=== PATIENT | male | born 1955 | race Caucasian/White ===

== ENCOUNTER → 2017-12-12 | Outpatient (CLI) | payer OTHER | LOC: M RAD 06:19 | DX: R93.5 Abnormal findings on diagnostic imaging of other abdominal regions, including retroperitoneum (principal); D69.6 Thrombocytopenia, unspecified | CPT/HCPCS: 76700 ==

== ENCOUNTER → 2018-03-27 | Outpatient (REF) | payer OTHER ==
[~2018-03-27] MED LIST: ASPI1TAB PO; GLIP10TA6 PO; JANU100T PO; LOSA50TA88 PO; METF10004 PO; PRAV10TA4 PO
== END ==
LOC: M LAB REF 10:13
PROVIDERS: ATTEND Physician Assistant
DX: N39.0 Urinary tract infection, site not specified (principal)

== ENCOUNTER 2023-02-28 03:16 | Inpatient (IN) | payer MEDICARE, OTHER ==
[~2023-02-28] VITALS: Ht 180.3 cm; Wt 140.4 kg
[~2023-02-28 03:16] MED LIST changes: -ASPI1TAB PO; +ASPI81TA26 PO; +LOSA50TA28 PO; -LOSA50TA88 PO
[2023-02-28 04:39] VITALS: BP 165/86; TEMP 98.4; O2SAT 98
[2023-02-28] MEDS ORDERED: ONDANSETRON 4MG 2ML VIAL IV PRN (04:40)
[2023-02-28] MEDS ORDERED: GLUCAGON INJ 1MG VIAL SC PRN (04:40)
[2023-02-28] MEDS ORDERED: GLUCOSE 4GM CHEW TABLET PO PRN (04:40)
[2023-02-28] MEDS ORDERED: DEXTROSE 50% 50ML SYRINGE IV PRN (04:40)
[2023-02-28 05:48] LABS: BASO # 0.1 10^3/uL (0.0-0.2); BASO % 1.1 % (0.0-1.0); EOS # 0.3 10^3/uL (0.0-0.5); EOS % 4.8 % (0.0-3.0); HEMATOCRIT 38.1 % (42.0-52.0); HEMOGLOBIN 12.9 g/dl (13.5-17.5); LYMPH # 1.4 10^3/uL (1.5-5.0); MEAN CORPUSCULAR HEMOGLOBIN 33.7 pg (27.0-33.0); MEAN CORPUSCULAR HGB CONC 33.9 g/dl (32.0-36.5); MEAN CORPUSCULAR VOLUME 99.5 fl (80.0-96.0); MONO # 0.8 10^3/uL (0.0-0.8); MONO % 14.6 % (2.0-8.0); NEUTROPHILS # 2.8 10^3/uL (1.5-8.5); NEUTROPHILS % 52.3 % (36.0-66.0); RED BLOOD COUNT 3.83 10^6/uL (4.30-6.10); WHITE BLOOD COUNT 5.3 10^3/uL (4.0-10.0)
[2023-02-28 05:57] LABS: INR 1.41; PROTHROMBIN TIME 16.8 SECONDS (12.5-14.5)
[2023-02-28 05:58] LABS: PARTIAL THROMBOPLASTIN TIME 32.1 SECONDS (24.8-34.2)
[2023-02-28 06:04] LABS: PLATELET COUNT, AUTOMATED 86 10^3/uL (150-450)
[2023-02-28 06:07] LABS: ALBUMIN 2.9 G/DL (3.2-5.2); ALKALINE PHOSPHATASE 113 U/L (46-116); ALT/SGPT 42 U/L (7.0-40); AST/SGOT 58 U/L (<34); BILIRUBIN,TOTAL 1.7 MG/DL (0.3-1.2); BLOOD UREA NITROGEN 22 MG/DL (9-23); CALCIUM LEVEL 8.7 MG/DL (8.3-10.6); CARBON DIOXIDE LEVEL 23 MMOL/L (20-31); CHLORIDE LEVEL 111 MMOL/L (98-107); CREATININE FOR GFR 0.55 MG/DL (0.70-1.30); GLOMERULAR FILTRATION RATE > 60.0 (>49); GLUCOSE, FASTING 95 MG/DL (74-106); POTASSIUM SERUM 3.5 MMOL/L (3.5-5.1); SODIUM LEVEL 144 MMOL/L (136-145); TOTAL PROTEIN 6.6 G/DL (5.7-8.2)
[2023-02-28] MEDS ORDERED: TIRZ7.5P SQ (06:22)
[2023-02-28] MEDS ORDERED: AMLO1TAB24 PO (06:22)
[2023-02-28] MEDS ORDERED: ASPI-161 PO (06:22)
[2023-02-28] MEDS ORDERED: TUMS500C PO (06:22)
[2023-02-28] MEDS ORDERED: HOME MED LIST COMPLETE! XX SCH (06:25)
[2023-02-28] MEDS: traMADol 50 MG TAB PO PRN ×2 (06:38→20:52)
[2023-02-28] MEDS: INSULIN LISPRO (NovoLOG) PER UNIT SC SCH ×4 (07:30→20:47)
[2023-02-28] MEDS ORDERED: SPIRONOLACTONE 25 MG TAB PO SCH (09:00)
[2023-02-28] MEDS ORDERED: FUROSEMIDE 20MG/2ML VIAL IV SCH (09:00)
[2023-02-28] MEDS: PANTOPRAZOLE 40MG VIAL IV SCH (09:23)
[2023-02-28] MEDS: SPIRONOLACTONE 50 MG TAB PO SCH (09:23)
[2023-02-28] MEDS: FUROSEMIDE 20MG/2ML VIAL IV SCH (09:24)
[2023-02-28] MEDS: LACTULOSE 20GM/30ML SYRUP UDC PO SCH ×2 (09:24→20:51)
[2023-02-28 12:05] LABS: HEPATITIS B SURFACE ANTIBODY POSITIVE (POSITIVE)
[2023-02-28 12:08] LABS: APPEARANCE, BODY FLUID HAZY (CLEAR); ASCITES FL COLOR YELLOW (COLORLESS); SOURCE, BODY FLUID ASCITES
[2023-02-28 12:22] LABS: SOURCE, BODY FLUID ALBUMIN ASCITES
[2023-02-28 12:27] LABS: SOURCE, BODY FLUID GLUCOSE ASCITES
[2023-02-28 12:29] LABS: SOURCE, BODY FLUID TOT PROTEIN ASCITES; TOTAL PROTEIN, BODY FLUID < 2.0 G/DL (NOT ESTABLISHED)
[2023-02-28 12:39] LABS: HEPATITIS C VIRUS ABY INDEX 0.04 INDEX (<0.8)
[2023-02-28 14:00] VITALS: TEMP 98.1; O2SAT 98
[2023-02-28 14:14] VITALS: BP 165/85
[2023-02-28 22:00] VITALS: BP 165/86; TEMP 98.1; O2SAT 94
[2023-02-28] MEDS: HEPARIN SOD (PORCINE) 5000UNITS/ML 1ML VIAL/SYRINGE SC SCH (22:38)
[2023-02-28] MEDS ORDERED: hydrALAZINE 20MG/ML 1ML VIAL IV ONE (22:50)
[2023-02-28] MEDS ORDERED: **hydrALAZINE HCL** 25 MG TAB PO ONE (23:00)
[2023-03-01] MEDS ORDERED: UNRESOLVED CLARIFICATION ENTRY XX SCH (00:01)
[2023-03-01] MEDS: HEPARIN SOD (PORCINE) 5000UNITS/ML 1ML VIAL/SYRINGE SC SCH ×3 (05:17→22:04)
[2023-03-01 06:06] LABS: HEMATOCRIT 34.9 % (42.0-52.0); HEMOGLOBIN 11.9 g/dl (13.5-17.5); MEAN CORPUSCULAR HEMOGLOBIN 33.6 pg (27.0-33.0); MEAN CORPUSCULAR HGB CONC 34.1 g/dl (32.0-36.5); MEAN CORPUSCULAR VOLUME 98.6 fl (80.0-96.0); RED BLOOD COUNT 3.54 10^6/uL (4.30-6.10); WHITE BLOOD COUNT 4.2 10^3/uL (4.0-10.0)
[2023-03-01 06:23] LABS: PLATELET COUNT, AUTOMATED 79 10^3/uL (150-450)
[2023-03-01 06:30] VITALS: BP 128/76; TEMP 97.1; O2SAT 94
[2023-03-01 06:32] LABS: ALBUMIN 2.5 G/DL (3.2-5.2); ALKALINE PHOSPHATASE 99 U/L (46-116); ALT/SGPT 37 U/L (7.0-40); AST/SGOT 51 U/L (<34); BILIRUBIN,DIRECT 0.6 MG/DL (<0.4); BILIRUBIN,TOTAL 1.4 MG/DL (0.3-1.2); BLOOD UREA NITROGEN 16 MG/DL (9-23); CALCIUM LEVEL 7.9 MG/DL (8.3-10.6); CARBON DIOXIDE LEVEL 28 MMOL/L (20-31); CHLORIDE LEVEL 111 MMOL/L (98-107); CREATININE FOR GFR 0.51 MG/DL (0.70-1.30); GLOMERULAR FILTRATION RATE > 60.0 (>49); GLUCOSE, FASTING 99 MG/DL (74-106); POTASSIUM SERUM 3.4 MMOL/L (3.5-5.1); SODIUM LEVEL 145 MMOL/L (136-145); TOTAL PROTEIN 5.8 G/DL (5.7-8.2)
[2023-03-01] MEDS: INSULIN LISPRO (NovoLOG) PER UNIT SC SCH ×4 (07:19→21:00)
[2023-03-01] MEDS: LACTULOSE 20GM/30ML SYRUP UDC PO SCH ×2 (08:13→22:04)
[2023-03-01] MEDS: PANTOPRAZOLE 40MG VIAL IV SCH (08:13)
[2023-03-01] MEDS: FUROSEMIDE 20MG/2ML VIAL IV SCH (08:14)
[2023-03-01] MEDS: SPIRONOLACTONE 50 MG TAB PO SCH (08:14)
[2023-03-01] MEDS ORDERED: POTASSIUM CHLORIDE 10MEQ SR TABLET PO ONE (09:00)
[2023-03-01] MEDS: ASPIRIN 81MG ENTERIC TABLET PO SCH (13:32)
[2023-03-01 14:00] VITALS: BP 146/77; TEMP 97.9; O2SAT 99
[2023-03-01 20:38] VITALS: BP 116/74; TEMP 98.8; O2SAT 96
[2023-03-01] MEDS ORDERED: PRAVASTATIN 10 MG TAB PO SCH (21:00)
[2023-03-01] MEDS: ANALGESIC BALM CRM 3OZ TOP SCH (22:05)
[2023-03-01] MEDS: traMADol 50 MG TAB PO PRN (22:05)
[2023-03-02 05:47] LABS: HEMATOCRIT 35.4 % (42.0-52.0); HEMOGLOBIN 12.2 g/dl (13.5-17.5); MEAN CORPUSCULAR HEMOGLOBIN 33.6 pg (27.0-33.0); MEAN CORPUSCULAR HGB CONC 34.5 g/dl (32.0-36.5); MEAN CORPUSCULAR VOLUME 97.5 fl (80.0-96.0); RED BLOOD COUNT 3.63 10^6/uL (4.30-6.10)
[2023-03-02 05:50] LABS: PLATELET COUNT, AUTOMATED 86 10^3/uL (150-450)
[2023-03-02 06:00] VITALS: BP 120/73; TEMP 98.1; O2SAT 97
[2023-03-02 06:10] LABS: ALBUMIN 2.5 G/DL (3.2-5.2); ALKALINE PHOSPHATASE 103 U/L (46-116); ALT/SGPT 39 U/L (7.0-40); AST/SGOT 55 U/L (<34); BILIRUBIN,DIRECT 0.6 MG/DL (<0.4); BILIRUBIN,TOTAL 1.6 MG/DL (0.3-1.2); BLOOD UREA NITROGEN 16 MG/DL (9-23); CALCIUM LEVEL 8.2 MG/DL (8.3-10.6); CARBON DIOXIDE LEVEL 26 MMOL/L (20-31); CHLORIDE LEVEL 111 MMOL/L (98-107); GLOMERULAR FILTRATION RATE > 60.0 (>49); GLUCOSE, FASTING 92 MG/DL (74-106); POTASSIUM SERUM 3.5 MMOL/L (3.5-5.1); SODIUM LEVEL 140 MMOL/L (136-145); TOTAL PROTEIN 6.2 G/DL (5.7-8.2)
[2023-03-02] MEDS: HEPARIN SOD (PORCINE) 5000UNITS/ML 1ML VIAL/SYRINGE SC SCH (06:55)
[2023-03-02] MEDS: INSULIN LISPRO (NovoLOG) PER UNIT SC SCH (07:30)
[2023-03-02] MEDS: ASPIRIN 81MG ENTERIC TABLET PO SCH (08:11)
[2023-03-02] MEDS: LACTULOSE 20GM/30ML SYRUP UDC PO SCH (08:11)
[2023-03-02] MEDS: SPIRONOLACTONE 50 MG TAB PO SCH (08:13)
[2023-03-02] MEDS: ANALGESIC BALM CRM 3OZ TOP SCH (08:14)
[2023-03-02 08:15] VITALS: BP 167/79
[2023-03-02] MEDS ORDERED: FUROSEMIDE 40 MG TAB PO SCH (09:00)
[2023-03-02] MEDS ORDERED: MIRA3350 PO (10:50)
[2023-03-02] MEDS ORDERED: ALDA50TA2 PO (10:50)
[2023-03-02] MEDS ORDERED: LACT20EL PO (10:50)
[2023-03-02] MEDS ORDERED: FURO40TA2 PO (10:50)
[2023-03-02] MEDS ORDERED: SPIR100T3 PO (11:15)
== END 2023-03-02 12:18 | disposition home or self-care (01) | DRG 433 ==
LOC: M MSPAV 04:20 → OBSVTOIN 13:24 → M MSPAV 03-01 15:13
PROVIDERS: ADMIT Internal Medicine; ATTEND Student in an Organized Health Care Education/Training Program
PROC: B246ZZZ Ultrasonography of Right and Left Heart (ICD-10-PCS; 2023-02-28)
PROC: 0W9G3ZZ Drainage of Peritoneal Cavity, Percutaneous Approach (ICD-10-PCS; principal; 2023-02-28 15:00)
DX: K74.60 Unspecified cirrhosis of liver (principal); R18.8 Other ascites; K76.6 Portal hypertension; I50.32 Chronic diastolic (congestive) heart failure; E78.5 Hyperlipidemia, unspecified; D64.9 Anemia, unspecified; E11.9 Type 2 diabetes mellitus without complications; I11.0 Hypertensive heart disease with heart failure; K76.82 Hepatic encephalopathy; K21.9 Gastro-esophageal reflux disease without esophagitis; D69.59 Other secondary thrombocytopenia; G47.33 Obstructive sleep apnea (adult) (pediatric); J44.9 Chronic obstructive pulmonary disease, unspecified; I25.10 Atherosclerotic heart disease of native coronary artery without angina pectoris; Z79.82 Long term (current) use of aspirin; Z79.84 Long term (current) use of oral hypoglycemic drugs; Z79.899 Other long term (current) drug therapy

== ENCOUNTER → 2023-08-09 | Outpatient (CLI) | payer MEDICARE, OTHER ==
[~2023-08-09] MED LIST changes: +ALDA50TA2 PO; +AMLO1TAB24 PO; +ASPI-615 PO; +E-Z-PAQUE 96% w/w SUSP 176GM BTL As Ordered ONE; +FURO40TA2 PO; +LACT20EL PO; +MIRA3350 PO; +SPIR100T3 PO; +TIRZ7.5P SQ; +TUMS500C PO
== END ==
LOC: M RAD 08:19
PROVIDERS: ATTEND Internal Medicine Gastroenterology
DX: R13.10 Dysphagia, unspecified (principal)

== ENCOUNTER → 2023-09-11 | Outpatient (CLI) | payer MEDICARE, OTHER ==
[~2023-09-11] MED LIST changes: -E-Z-PAQUE 96% w/w SUSP 176GM BTL As Ordered ONE
== END ==
LOC: M RAD 08:51
PROVIDERS: ATTEND Internal Medicine Gastroenterology
DX: K74.60 Unspecified cirrhosis of liver (principal); K76.82 Hepatic encephalopathy; I85.00 Esophageal varices without bleeding; R25.2 Cramp and spasm; R13.10 Dysphagia, unspecified

== ENCOUNTER 2023-12-12 06:14 | Inpatient (IN) | payer MEDICARE, OTHER ==
[~2023-12-12] VITALS: Ht 180.3 cm; Wt 110.5 kg
[2023-12-12] VITALS (10 sets, daily range): BP systolic 121–130; BP diastolic 65–68; TEMP 97.2–97.3; O2SAT 96–99
[~2023-12-12 06:14] MED LIST changes: +GLIP10TA15 PO; -GLIP10TA6 PO
[2023-12-12 08:25] LABS: BASO # 0.1 10^3/uL (0.0-0.2); BASO % 0.9 % (0.0-1.0); EOS # 0.2 10^3/uL (0.0-0.5); EOS % 2.5 % (0.0-3.0); HEMOGLOBIN 12.3 g/dl (13.5-17.5); LYMPH # 1.1 10^3/uL (1.5-5.0); LYMPH % 16.1 % (24.0-44.0); MEAN CORPUSCULAR HEMOGLOBIN 36.6 pg (27.0-33.0); MEAN CORPUSCULAR HGB CONC 36.2 g/dl (32.0-36.5); MEAN CORPUSCULAR VOLUME 101.2 fl (80.0-96.0); MONO # 1.1 10^3/uL (0.0-0.8); MONO % 15.8 % (2.0-8.0); NEUTROPHILS # 4.3 10^3/uL (1.5-8.5); NEUTROPHILS % 64.3 % (36.0-66.0); PLATELET COUNT, AUTOMATED 118 10^3/uL (150-450); RED BLOOD COUNT 3.36 10^6/uL (4.30-6.10); WHITE BLOOD COUNT 6.7 10^3/uL (4.0-10.0)
[2023-12-12 08:37] LABS: INR 1.76; PROTHROMBIN TIME 20.7 SECONDS (12.5-14.5)
[2023-12-12 10:54] LABS: LIPASE 34 U/L (12-53)
[2023-12-12] MEDS: FUROSEMIDE 100MG/10ML VIAL IV ONE (10:56)
[2023-12-12 10:59] LABS: ALBUMIN 2.7 G/DL (3.2-5.2); ALKALINE PHOSPHATASE 149 U/L (40-129); ALT/SGPT 39 U/L (7.0-40); AST/SGOT 52 U/L (<34); BILIRUBIN,DIRECT 1.3 MG/DL (<0.4); BILIRUBIN,TOTAL 3.4 MG/DL (0.3-1.2); BLOOD UREA NITROGEN 32 MG/DL (9-23); CALCIUM LEVEL 9.1 MG/DL (8.3-10.6); CARBON DIOXIDE LEVEL 22 MMOL/L (20-31); CHLORIDE LEVEL 105 MMOL/L (98-107); CREATININE FOR GFR 0.91 MG/DL (0.70-1.30); GLOMERULAR FILTRATION RATE > 60.0 (>49); GLUCOSE, FASTING 125 MG/DL (74-106); POTASSIUM SERUM 4.7 MMOL/L (3.5-5.1); SODIUM LEVEL 134 MMOL/L (136-145); TOTAL PROTEIN 6.8 G/DL (5.7-8.2)
[2023-12-12] MEDS ORDERED: LACT20EL PO (11:28)
[2023-12-12] MEDS ORDERED: TIRZ2.5P SQ (11:28)
[2023-12-12] MEDS ORDERED: SPIR50TA4 PO (11:28)
[2023-12-12] MEDS ORDERED: FURO40TA2 PO (11:28)
[2023-12-12] MEDS ORDERED: ROPI0.5T33 PO (11:31)
[2023-12-12] MEDS ORDERED: MAGN400T2 PO (11:31)
[2023-12-12] MEDS ORDERED: ORPH100T48 PO (11:31)
[2023-12-12] MEDS ORDERED: ELIQ2.5T PO (11:31)
[2023-12-12] MEDS ORDERED: ESOM20CA2 PO (11:31)
[2023-12-12] MEDS ORDERED: XIFA550T PO (11:31)
[2023-12-12] MEDS ORDERED: HOME MED LIST COMPLETE! XX SCH (11:35)
[2023-12-12 13:03] LABS: APPEARANCE, BODY FLUID CLEAR (CLEAR); ASCITES FL COLOR PALE YELLOW (COLORLESS); SOURCE, BODY FLUID ASCITES
[2023-12-12] MEDS: rifAXIMin 550 MG TAB (XIFAXAN) PO SCH (14:46)
[2023-12-12] MEDS: SPIRONOLACTONE 50 MG TAB PO SCH (14:46)
[2023-12-12] MEDS: rOPINIRole 0.25 MG TAB(REQUIP) PO SCH (14:46)
[2023-12-12] MEDS: LACTULOSE 20GM/30ML SYRUP UDC PO SCH (14:46)
[2023-12-12] MEDS ORDERED: GLUCAGON INJ 1MG VIAL SC PRN (15:30)
[2023-12-12] MEDS ORDERED: DEXTROSE 50% 50ML SYRINGE IV PRN (15:30)
[2023-12-12] MEDS ORDERED: GLUCOSE 4 GM CHEW PO PRN (15:30)
[2023-12-12] MEDS: INSULIN LISPRO (NovoLOG) PER UNIT SC SCH (17:04)
[2023-12-12] MEDS ORDERED: PILL CUTTER 1 EACH XX ONE (20:57)
[2023-12-12 22:15] LABS: BASO % 0.8 % (0.0-1.0); EOS # 0.1 10^3/uL (0.0-0.5); EOS % 3.3 % (0.0-3.0); HEMATOCRIT 30.9 % (42.0-52.0); HEMOGLOBIN 10.9 g/dl (13.5-17.5); LYMPH # 0.9 10^3/uL (1.5-5.0); LYMPH % 23.8 % (24.0-44.0); MEAN CORPUSCULAR HEMOGLOBIN 35.7 pg (27.0-33.0); MEAN CORPUSCULAR HGB CONC 35.3 g/dl (32.0-36.5); MEAN CORPUSCULAR VOLUME 101.3 fl (80.0-96.0); MONO # 0.7 10^3/uL (0.0-0.8); NEUTROPHILS # 2.1 10^3/uL (1.5-8.5); NEUTROPHILS % 53.8 % (36.0-66.0); RED BLOOD COUNT 3.05 10^6/uL (4.30-6.10)
[2023-12-12 22:21] LABS: PLATELET COUNT, AUTOMATED 67 10^3/uL (150-450)
[2023-12-12 22:31] LABS: ALBUMIN 2.8 G/DL (3.2-5.2); ALKALINE PHOSPHATASE 122 U/L (40-129); ALT/SGPT 31 U/L (7.0-40); AST/SGOT 39 U/L (<34); BILIRUBIN,DIRECT 1.1 MG/DL (<0.4); BILIRUBIN,TOTAL 2.8 MG/DL (0.3-1.2); BLOOD UREA NITROGEN 31 MG/DL (9-23); CALCIUM LEVEL 8.8 MG/DL (8.3-10.6); CARBON DIOXIDE LEVEL 24 MMOL/L (20-31); CHLORIDE LEVEL 105 MMOL/L (98-107); CREATININE FOR GFR 0.79 MG/DL (0.70-1.30); GLOMERULAR FILTRATION RATE > 60.0 (>49); GLUCOSE, FASTING 113 MG/DL (74-106); MAGNESIUM LEVEL 2.2 MG/DL (1.8-2.4); POTASSIUM SERUM 3.8 MMOL/L (3.5-5.1); SODIUM LEVEL 134 MMOL/L (136-145); TOTAL PROTEIN 6.1 G/DL (5.7-8.2)
[2023-12-12] MEDS: ACETAMINOPHEN *IV* 1,000 MG in IV 1 EA IV ONE (22:58)
[2023-12-13 04:00] VITALS: BP 124/66; TEMP 97.2; O2SAT 96
[2023-12-13 05:57] LABS: BASO % 1.2 % (0.0-1.0); EOS # 0.2 10^3/uL (0.0-0.5); EOS % 5.6 % (0.0-3.0); HEMATOCRIT 28.1 % (42.0-52.0); HEMOGLOBIN 10.2 g/dl (13.5-17.5); LYMPH % 31.7 % (24.0-44.0); MEAN CORPUSCULAR HEMOGLOBIN 36.6 pg (27.0-33.0); MEAN CORPUSCULAR HGB CONC 36.3 g/dl (32.0-36.5); MEAN CORPUSCULAR VOLUME 100.7 fl (80.0-96.0); MONO # 0.5 10^3/uL (0.0-0.8); MONO % 15.5 % (2.0-8.0); NEUTROPHILS # 1.5 10^3/uL (1.5-8.5); NEUTROPHILS % 45.7 % (36.0-66.0); RED BLOOD COUNT 2.79 10^6/uL (4.30-6.10); WHITE BLOOD COUNT 3.2 10^3/uL (4.0-10.0)
[2023-12-13 05:58] LABS: PLATELET COUNT, AUTOMATED 69 10^3/uL (150-450)
[2023-12-13 06:18] LABS: BLOOD UREA NITROGEN 30 MG/DL (9-23); CALCIUM LEVEL 8.7 MG/DL (8.3-10.6); CARBON DIOXIDE LEVEL 23 MMOL/L (20-31); CHLORIDE LEVEL 106 MMOL/L (98-107); CREATININE FOR GFR 0.76 MG/DL (0.70-1.30); GLOMERULAR FILTRATION RATE > 60.0 (>49); GLUCOSE, FASTING 76 MG/DL (74-106); POTASSIUM SERUM 3.9 MMOL/L (3.5-5.1); SODIUM LEVEL 136 MMOL/L (136-145)
[2023-12-13 08:00] VITALS: BP 129/79; TEMP 97.3; O2SAT 97
[2023-12-13] MEDS: FUROSEMIDE 40 MG TAB PO SCH (09:07)
[2023-12-13] MEDS: OMEPRAZOLE 20MG CAP PO SCH (09:08)
[2023-12-13] MEDS ORDERED: ACETAMINOPHEN 325 MG TAB PO PRN (11:30)
[2023-12-13] MEDS: FUROSEMIDE 40MG/4ML VIAL IV SCH (12:51)
[2023-12-13] MEDS: APIXABAN 2.5 MG TAB (ELIQUIS) PO SCH (12:53)
[2023-12-13] MEDS: SITagliptin 50 MG TAB (JANUVIA) PO SCH (12:53)
[2023-12-13] MEDS: MAGNESIUM OXIDE 400MG TAB (MAG-OX) PO SCH (12:54)
[2023-12-13 13:15] VITALS: BP 119/65; TEMP 97.3; O2SAT 100
[2023-12-13 15:14] VITALS: BP 102/66; TEMP 97.2; O2SAT 99
[2023-12-13 20:12] VITALS: BP 121/64; TEMP 96.8; O2SAT 99
[2023-12-13] MEDS: rOPINIRole 1MG TAB PO SCH (21:13)
[2023-12-13] MEDS: KETOROLAC 30 MG/ML 1ML VIAL IV ONE (22:27)
[2023-12-14 04:00] VITALS: BP 116/64; TEMP 97.9; O2SAT 95
[2023-12-14 05:14] LABS: BASO # 0.1 10^3/uL (0.0-0.2); BASO % 1.3 % (0.0-1.0); EOS # 0.2 10^3/uL (0.0-0.5); EOS % 5.3 % (0.0-3.0); HEMATOCRIT 30.2 % (42.0-52.0); HEMOGLOBIN 10.8 g/dl (13.5-17.5); LYMPH # 1.1 10^3/uL (1.5-5.0); LYMPH % 27.8 % (24.0-44.0); MEAN CORPUSCULAR HEMOGLOBIN 35.6 pg (27.0-33.0); MEAN CORPUSCULAR HGB CONC 35.8 g/dl (32.0-36.5); MEAN CORPUSCULAR VOLUME 99.7 fl (80.0-96.0); MONO # 0.8 10^3/uL (0.0-0.8); MONO % 18.8 % (2.0-8.0); NEUTROPHILS # 1.9 10^3/uL (1.5-8.5); NEUTROPHILS % 46.5 % (36.0-66.0); RED BLOOD COUNT 3.03 10^6/uL (4.30-6.10)
[2023-12-14 05:16] LABS: PLATELET COUNT, AUTOMATED 75 10^3/uL (150-450)
[2023-12-14 05:43] LABS: BLOOD UREA NITROGEN 28 MG/DL (9-23); CALCIUM LEVEL 8.7 MG/DL (8.3-10.6); CARBON DIOXIDE LEVEL 24 MMOL/L (20-31); CHLORIDE LEVEL 104 MMOL/L (98-107); CREATININE FOR GFR 0.96 MG/DL (0.70-1.30); GLOMERULAR FILTRATION RATE > 60.0 (>49); GLUCOSE, FASTING 98 MG/DL (74-106); POTASSIUM SERUM 3.8 MMOL/L (3.5-5.1); SODIUM LEVEL 137 MMOL/L (136-145)
[2023-12-14 11:21] VITALS: BP 113/66; TEMP 97.3; O2SAT 91
[2023-12-14 13:15] VITALS: BP 133/74; TEMP 97.5; O2SAT 99
[2023-12-14] MEDS: LACTULOSE 20GM/30ML SYRUP UDC PO SCH (13:22)
[2023-12-14 19:38] VITALS: BP 129/74; TEMP 97.2; O2SAT 97
[2023-12-14 20:00] VITALS: BP 129/74; TEMP 97.2; O2SAT 97
[2023-12-14 21:35] VITALS: BP 101/54; TEMP 97.5; O2SAT 95
[2023-12-15 03:33] VITALS: BP 104/70; TEMP 97.5; O2SAT 94
[2023-12-15 04:00] VITALS: BP 104/70; TEMP 97.5; O2SAT 94
[2023-12-15 05:19] VITALS: BP 107/68; TEMP 97.3; O2SAT 98
[2023-12-15 05:52] LABS: BASO % 0.9 % (0.0-1.0); EOS # 0.2 10^3/uL (0.0-0.5); EOS % 5.8 % (0.0-3.0); HEMATOCRIT 29.7 % (42.0-52.0); HEMOGLOBIN 10.6 g/dl (13.5-17.5); LYMPH # 0.9 10^3/uL (1.5-5.0); LYMPH % 25.9 % (24.0-44.0); MEAN CORPUSCULAR HEMOGLOBIN 35.9 pg (27.0-33.0); MEAN CORPUSCULAR HGB CONC 35.7 g/dl (32.0-36.5); MEAN CORPUSCULAR VOLUME 100.7 fl (80.0-96.0); MONO # 0.6 10^3/uL (0.0-0.8); MONO % 18.4 % (2.0-8.0); NEUTROPHILS # 1.7 10^3/uL (1.5-8.5); NEUTROPHILS % 48.7 % (36.0-66.0); RED BLOOD COUNT 2.95 10^6/uL (4.30-6.10); WHITE BLOOD COUNT 3.4 10^3/uL (4.0-10.0)
[2023-12-15 06:03] LABS: PLATELET COUNT, AUTOMATED 65 10^3/uL (150-450)
[2023-12-15 06:20] LABS: BLOOD UREA NITROGEN 26 MG/DL (9-23); CALCIUM LEVEL 8.5 MG/DL (8.3-10.6); CARBON DIOXIDE LEVEL 25 MMOL/L (20-31); CHLORIDE LEVEL 107 MMOL/L (98-107); CREATININE FOR GFR 0.99 MG/DL (0.70-1.30); GLOMERULAR FILTRATION RATE > 60.0 (>49); GLUCOSE, FASTING 90 MG/DL (74-106); POTASSIUM SERUM 3.7 MMOL/L (3.5-5.1); SODIUM LEVEL 139 MMOL/L (136-145)
[2023-12-15 08:15] VITALS: BP 114/60; TEMP 97; O2SAT 96
[2023-12-15] MEDS ORDERED: SPIR50TA4 PO (11:46)
[2023-12-15] MEDS ORDERED: LACT20EL PO (11:46)
[2023-12-15] MEDS ORDERED: FURO40TA2 PO (11:46)
== END 2023-12-15 14:09 | disposition home or self-care (01) | DRG 442 ==
LOC: M ED 06:14 → M ED INP 12:12 → M MSPAV 14:24
PROVIDERS: ADMIT Internal Medicine Nephrology; ATTEND Internal Medicine Nephrology
PROC: 0W9G3ZZ Drainage of Peritoneal Cavity, Percutaneous Approach (ICD-10-PCS; principal; 2023-12-12 15:30)
PROC: 30233J1 Transfusion of Nonautologous Serum Albumin into Peripheral Vein, Percutaneous Approach (ICD-10-PCS; 2023-12-13)
DX: K75.81 Nonalcoholic steatohepatitis (NASH) (principal); R18.8 Other ascites; K76.6 Portal hypertension; I85.10 Secondary esophageal varices without bleeding; J90 Pleural effusion, not elsewhere classified; K74.69 Other cirrhosis of liver; E11.9 Type 2 diabetes mellitus without complications; I10 Essential (primary) hypertension; G47.33 Obstructive sleep apnea (adult) (pediatric); K76.82 Hepatic encephalopathy; D69.6 Thrombocytopenia, unspecified; M54.50 Low back pain, unspecified; R16.1 Splenomegaly, not elsewhere classified; K31.89 Other diseases of stomach and duodenum; K21.9 Gastro-esophageal reflux disease without esophagitis; E78.5 Hyperlipidemia, unspecified; I25.10 Atherosclerotic heart disease of native coronary artery without angina pectoris; J44.9 Chronic obstructive pulmonary disease, unspecified; G25.81 Restless legs syndrome; Z86.718 Personal history of other venous thrombosis and embolism; Z79.01 Long term (current) use of anticoagulants; Z79.899 Other long term (current) drug therapy

== ENCOUNTER 2024-03-08 09:56 | Inpatient (IN) | payer MEDICARE, OTHER ==
[~2024-03-08] VITALS: Ht 180.3 cm; Wt 98.1 kg
[~2024-03-08 09:56] MED LIST changes: +ELIQ2.5T PO; +ESOM20CA2 PO; +MAGN400T2 PO; +ORPH100T48 PO; +ROPI0.5T33 PO; +SPIR50TA4 PO; +TIRZ2.5P SQ; +XIFA550T PO
[2024-03-08] MEDS ORDERED: FOLI1TAB11 PO (10:13)
[2024-03-08] MEDS ORDERED: MULT400T10 PO (10:13)
[2024-03-08] MEDS ORDERED: B-1100TA2 PO (10:13)
[2024-03-08] MEDS ORDERED: TRAZ-252 PO (10:13)
[2024-03-08] MEDS ORDERED: NYST1CRE15 TOP (10:13)
[2024-03-08] MEDS ORDERED: PANT40TA29 PO (10:13)
[2024-03-08] MEDS ORDERED: ERGO500029 PO (10:13)
[2024-03-08 11:30] LABS: BASO # 0.1 10^3/uL (0.0-0.2); EOS # 0.2 10^3/uL (0.0-0.5); EOS % 3.1 % (0.0-3.0); HEMATOCRIT 23.8 % (42.0-52.0); HEMOGLOBIN 8.6 g/dl (13.5-17.5); INR 2.66; LYMPH # 0.6 10^3/uL (1.5-5.0); MEAN CORPUSCULAR HEMOGLOBIN 37.1 pg (27.0-33.0); MEAN CORPUSCULAR HGB CONC 36.1 g/dl (32.0-36.5); MEAN CORPUSCULAR VOLUME 102.6 fl (80.0-96.0); MONO # 0.9 10^3/uL (0.0-0.8); MONO % 17.5 % (2.0-8.0); NEUTROPHILS # 3.4 10^3/uL (1.5-8.5); NEUTROPHILS % 66.8 % (36.0-66.0); PARTIAL THROMBOPLASTIN TIME 39.5 SECONDS (24.8-34.2); PROTHROMBIN TIME 28.3 SECONDS (12.5-14.5); RED BLOOD COUNT 2.32 10^6/uL (4.30-6.10); WHITE BLOOD COUNT 5.1 10^3/uL (4.0-10.0)
[2024-03-08 11:34] LABS: PLATELET COUNT, AUTOMATED 73 10^3/uL (150-450)
[2024-03-08] MEDS: LACTULOSE 20GM/30ML SYRUP UDC PO ONE (12:55)
[2024-03-08 12:58] LABS: ALBUMIN 2.7 G/DL (3.2-5.2); BILIRUBIN,DIRECT 1.8 MG/DL (<0.4); BILIRUBIN,TOTAL 3.9 MG/DL (0.3-1.2); CALCIUM LEVEL 8.3 MG/DL (8.3-10.6); CREATININE FOR GFR 1.42 MG/DL (0.70-1.30); GLOMERULAR FILTRATION RATE 52.9 (>49); POTASSIUM SERUM 5.1 MMOL/L (3.5-5.1)
[2024-03-08] MEDS: NS 500 ML IV ONE (13:40)
[2024-03-08] MEDS ORDERED: ISOVUE-370 76% 100ML VIAL As Ordered ONE (13:47)
[2024-03-08 16:24] LABS: SOURCE, BODY FLUID ASCITES
[2024-03-08 16:25] LABS: APPEARANCE, BODY FLUID CLOUDY (CLEAR); ASCITES FL COLOR RED (COLORLESS)
[2024-03-08] MEDS: PANTOPRAZOLE 40MG VIAL IV ONE (16:34)
[2024-03-08 16:49] LABS: SOURCE, BODY FLUID ALBUMIN ASCITES; SOURCE, BODY FLUID GLUCOSE ASCITES; SOURCE, BODY FLUID TOT PROTEIN P.DIALYSIS; TOTAL PROTEIN, BODY FLUID < 2.0 G/DL (NOT ESTABLISHED)
[2024-03-08] MEDS ORDERED: SPIR100T3 PO (16:56)
[2024-03-08] MEDS ORDERED: ZINC57OI TP (16:56)
[2024-03-08] MEDS ORDERED: AMLO1TAB24 PO (16:56)
[2024-03-08] MEDS ORDERED: HOME MED LIST COMPLETE! XX SCH (17:00)
[2024-03-08] MEDS: cefTRIAXone SOD 2 GM in DEXTROSE 5% (D5W) ADV/MINI-BAG 50 ML IV ONE (17:05)
[2024-03-08] MEDS: APIXABAN 2.5 MG TAB (ELIQUIS) PO SCH (21:32)
[2024-03-08] MEDS: PANTOPRAZOLE 40MG TAB (PROTONIX) PO SCH (21:32)
[2024-03-08] MEDS: LACTULOSE 20GM/30ML SYRUP UDC PO SCH (21:32)
[2024-03-08] MEDS: rifAXIMin 550 MG TAB (XIFAXAN) PO SCH (21:32)
[2024-03-09] VITALS (11 sets, daily range): BP systolic 96–119; BP diastolic 54–65; TEMP 96.2–98.6; O2SAT 96–99
[2024-03-09] MEDS: THIAMINE 100 MG TAB PO SCH (09:00)
[2024-03-09] MEDS: FUROSEMIDE 40 MG TAB PO SCH (09:00)
[2024-03-09] MEDS: FOLIC ACID 1MG TAB PO SCH (09:00)
[2024-03-09] MEDS: SPIRONOLACTONE 50 MG TAB PO SCH (09:00)
[2024-03-09 11:59] LABS: BASO % 1.1 % (0.0-1.0); EOS # 0.1 10^3/uL (0.0-0.5); EOS % 3.2 % (0.0-3.0); HEMATOCRIT 23.2 % (42.0-52.0); HEMOGLOBIN 8.4 g/dl (13.5-17.5); LYMPH # 0.6 10^3/uL (1.5-5.0); LYMPH % 20.5 % (24.0-44.0); MEAN CORPUSCULAR HEMOGLOBIN 36.7 pg (27.0-33.0); MEAN CORPUSCULAR HGB CONC 36.2 g/dl (32.0-36.5); MEAN CORPUSCULAR VOLUME 101.3 fl (80.0-96.0); MONO # 0.5 10^3/uL (0.0-0.8); MONO % 16.5 % (2.0-8.0); NEUTROPHILS # 1.6 10^3/uL (1.5-8.5); NEUTROPHILS % 58.7 % (36.0-66.0); RED BLOOD COUNT 2.29 10^6/uL (4.30-6.10); WHITE BLOOD COUNT 2.8 10^3/uL (4.0-10.0)
[2024-03-09 12:18] LABS: PLATELET COUNT, AUTOMATED 79 10^3/uL (150-450)
[2024-03-09 12:28] LABS: C REACTIVE PROTEIN QUANTITATIV 1.97 MG/DL (<1.0)
[2024-03-09 12:33] LABS: ALBUMIN 2.9 G/DL (3.2-5.2); ALKALINE PHOSPHATASE 146 U/L (40-129); ALT/SGPT 22 U/L (7.0-40); AST/SGOT 25 U/L (<34); BILIRUBIN,TOTAL 3.8 MG/DL (0.3-1.2); BLOOD UREA NITROGEN 20 MG/DL (9-23); CALCIUM LEVEL 8.1 MG/DL (8.3-10.6); CARBON DIOXIDE LEVEL 26 MMOL/L (20-31); CHLORIDE LEVEL 102 MMOL/L (98-107); CREATININE FOR GFR 1.15 MG/DL (0.70-1.30); GLOMERULAR FILTRATION RATE > 60.0 (>49); GLUCOSE, FASTING 73 MG/DL (74-106); POTASSIUM SERUM 4.3 MMOL/L (3.5-5.1); SODIUM LEVEL 137 MMOL/L (136-145); TOTAL PROTEIN 5.6 G/DL (5.7-8.2)
[2024-03-09] MEDS ORDERED: LACTULOSE 20GM/30ML SYRUP UDC PR SCH (16:55)
[2024-03-09] MEDS: HALOPERIDOL LACTATE 5MG/ML VIAL IM PRN (17:56)
[2024-03-09] MEDS: LACTULOSE 20GM/30ML SYRUP UDC PR SCH (18:00)
[2024-03-09] MEDS: HALOPERIDOL LACTATE 5MG/ML VIAL IV STA (18:54)
[2024-03-09] MEDS: PIPERACILLIN/TAZOBACTAM SOD 2.25 GM in DEXTROSE 5% (D5W) ADV/MINI-BAG 50 ML IV SCH (23:00)
[2024-03-10 07:52] LABS: BASO % 1.1 % (0.0-1.0); EOS # 0.1 10^3/uL (0.0-0.5); HEMATOCRIT 22.8 % (42.0-52.0); HEMOGLOBIN 8.2 g/dl (13.5-17.5); LYMPH # 0.5 10^3/uL (1.5-5.0); LYMPH % 17.3 % (24.0-44.0); MEAN CORPUSCULAR HEMOGLOBIN 37.1 pg (27.0-33.0); MEAN CORPUSCULAR VOLUME 103.2 fl (80.0-96.0); MONO # 0.4 10^3/uL (0.0-0.8); MONO % 15.5 % (2.0-8.0); NEUTROPHILS # 1.7 10^3/uL (1.5-8.5); NEUTROPHILS % 62.4 % (36.0-66.0); RED BLOOD COUNT 2.21 10^6/uL (4.30-6.10); WHITE BLOOD COUNT 2.7 10^3/uL (4.0-10.0)
[2024-03-10 07:54] LABS: PLATELET COUNT, AUTOMATED 76 10^3/uL (150-450)
[2024-03-10 08:23] LABS: ALBUMIN 2.6 G/DL (3.2-5.2); ALKALINE PHOSPHATASE 135 U/L (40-129); ALT/SGPT 20 U/L (7.0-40); AST/SGOT 31 U/L (<34); BILIRUBIN,TOTAL 3.7 MG/DL (0.3-1.2); BLOOD UREA NITROGEN 20 MG/DL (9-23); CALCIUM LEVEL 7.7 MG/DL (8.3-10.6); CARBON DIOXIDE LEVEL 25 MMOL/L (20-31); CHLORIDE LEVEL 103 MMOL/L (98-107); GLOMERULAR FILTRATION RATE > 60.0 (>49); GLUCOSE, FASTING 133 MG/DL (74-106); POTASSIUM SERUM 4.2 MMOL/L (3.5-5.1); SODIUM LEVEL 137 MMOL/L (136-145); TOTAL PROTEIN 5.1 G/DL (5.7-8.2)
[2024-03-10] MEDS ORDERED: LACTULOSE 20GM/30ML SYRUP UDC PR PRN (09:30)
[2024-03-10] MEDS: LACTULOSE 20GM/30ML SYRUP UDC PO SCH (09:35)
[2024-03-10] MEDS: PIPERACILLIN/TAZOBACTAM SOD 3.375 GM in DEXTROSE 5% (D5W) ADV/MINI-BAG 50 ML IV SCH (12:43)
[2024-03-11 09:17] LABS: BASO % 0.7 % (0.0-1.0); EOS # 0.1 10^3/uL (0.0-0.5); EOS % 3.9 % (0.0-3.0); HEMATOCRIT 25.2 % (42.0-52.0); HEMOGLOBIN 8.9 g/dl (13.5-17.5); LYMPH # 0.5 10^3/uL (1.5-5.0); LYMPH % 15.7 % (24.0-44.0); MEAN CORPUSCULAR HEMOGLOBIN 36.5 pg (27.0-33.0); MEAN CORPUSCULAR HGB CONC 35.3 g/dl (32.0-36.5); MEAN CORPUSCULAR VOLUME 103.3 fl (80.0-96.0); MONO # 0.5 10^3/uL (0.0-0.8); MONO % 14.8 % (2.0-8.0); NEUTROPHILS % 64.6 % (36.0-66.0); RED BLOOD COUNT 2.44 10^6/uL (4.30-6.10); WHITE BLOOD COUNT 3.1 10^3/uL (4.0-10.0)
[2024-03-11 09:19] LABS: PLATELET COUNT, AUTOMATED 85 10^3/uL (150-450)
[2024-03-11 09:49] LABS: ALBUMIN 2.9 G/DL (3.2-5.2); BILIRUBIN,TOTAL 3.2 MG/DL (0.3-1.2); CREATININE FOR GFR 1.28 MG/DL (0.70-1.30); GLOMERULAR FILTRATION RATE 59.7 (>49); TOTAL PROTEIN 5.8 G/DL (5.7-8.2)
[2024-03-12 07:46] LABS: ALBUMIN 2.9 G/DL (3.2-5.2); ALKALINE PHOSPHATASE 149 U/L (40-129); ALT/SGPT 24 U/L (7.0-40); AST/SGOT 37 U/L (<34); BILIRUBIN,TOTAL 2.9 MG/DL (0.3-1.2); BLOOD UREA NITROGEN 17 MG/DL (9-23); CALCIUM LEVEL 8.5 MG/DL (8.3-10.6); CARBON DIOXIDE LEVEL 26 MMOL/L (20-31); CHLORIDE LEVEL 103 MMOL/L (98-107); CREATININE FOR GFR 1.18 MG/DL (0.70-1.30); GLOMERULAR FILTRATION RATE > 60.0 (>49); GLUCOSE, FASTING 118 MG/DL (74-106); SODIUM LEVEL 138 MMOL/L (136-145)
[2024-03-12 07:50] LABS: BASO # 0.1 10^3/uL (0.0-0.2); EOS # 0.2 10^3/uL (0.0-0.5); EOS % 3.6 % (0.0-3.0); HEMOGLOBIN 8.7 g/dl (13.5-17.5); LYMPH # 0.8 10^3/uL (1.5-5.0); LYMPH % 15.6 % (24.0-44.0); MEAN CORPUSCULAR HEMOGLOBIN 36.6 pg (27.0-33.0); MEAN CORPUSCULAR HGB CONC 36.3 g/dl (32.0-36.5); MEAN CORPUSCULAR VOLUME 100.8 fl (80.0-96.0); MONO # 0.8 10^3/uL (0.0-0.8); NEUTROPHILS # 3.2 10^3/uL (1.5-8.5); NEUTROPHILS % 64.4 % (36.0-66.0); RED BLOOD COUNT 2.38 10^6/uL (4.30-6.10)
[2024-03-12 07:51] LABS: PLATELET COUNT, AUTOMATED 88 10^3/uL (150-450)
[2024-03-12] MEDS: LACTULOSE 20GM/30ML SYRUP UDC PO SCH (13:24)
[2024-03-12 13:30] VITALS: BP 129/70; TEMP 97.2; O2SAT 100
[2024-03-12 21:15] VITALS: BP 123/67; TEMP 97.7; O2SAT 96
[2024-03-13 05:17] VITALS: BP 109/73; TEMP 97.5; O2SAT 96
[2024-03-13 06:06] LABS: BASO # 0.1 10^3/uL (0.0-0.2); BASO % 1.2 % (0.0-1.0); EOS # 0.2 10^3/uL (0.0-0.5); EOS % 4.7 % (0.0-3.0); HEMATOCRIT 23.1 % (42.0-52.0); HEMOGLOBIN 8.2 g/dl (13.5-17.5); LYMPH # 0.8 10^3/uL (1.5-5.0); MEAN CORPUSCULAR HEMOGLOBIN 36.3 pg (27.0-33.0); MEAN CORPUSCULAR HGB CONC 35.5 g/dl (32.0-36.5); MEAN CORPUSCULAR VOLUME 102.2 fl (80.0-96.0); MONO # 0.7 10^3/uL (0.0-0.8); NEUTROPHILS # 2.3 10^3/uL (1.5-8.5); NEUTROPHILS % 56.6 % (36.0-66.0); PLATELET COUNT, AUTOMATED 82 10^3/uL (150-450); RED BLOOD COUNT 2.26 10^6/uL (4.30-6.10); WHITE BLOOD COUNT 4.1 10^3/uL (4.0-10.0)
[2024-03-13 06:27] LABS: ALBUMIN 2.6 G/DL (3.2-5.2); ALKALINE PHOSPHATASE 134 U/L (40-129); ALT/SGPT 23 U/L (7.0-40); AST/SGOT 35 U/L (<34); BILIRUBIN,TOTAL 2.6 MG/DL (0.3-1.2); BLOOD UREA NITROGEN 19 MG/DL (9-23); CALCIUM LEVEL 8.1 MG/DL (8.3-10.6); CARBON DIOXIDE LEVEL 26 MMOL/L (20-31); CHLORIDE LEVEL 103 MMOL/L (98-107); CREATININE FOR GFR 1.18 MG/DL (0.70-1.30); GLOMERULAR FILTRATION RATE > 60.0 (>49); GLUCOSE, FASTING 99 MG/DL (74-106); POTASSIUM SERUM 3.7 MMOL/L (3.5-5.1); SODIUM LEVEL 138 MMOL/L (136-145); TOTAL PROTEIN 5.5 G/DL (5.7-8.2)
[2024-03-13] MEDS: LACTULOSE 20GM/30ML SYRUP UDC PO ONE (09:35)
[2024-03-13 10:50] VITALS: BP 113/66; TEMP 97.5; O2SAT 96
[2024-03-13] MEDS: metroNIDAZOLE (FLAGYL) 500MG TABLET PO SCH (13:06)
[2024-03-13] MEDS: CIPROFLOXACIN 500MG TABLET PO SCH (17:11)
[2024-03-13] MEDS: ANALGESIC BALM CRM 3OZ TOP SCH (17:11)
[2024-03-13 20:26] VITALS: BP 117/66; TEMP 97.7; O2SAT 96
[2024-03-14 05:21] LABS: BASO # 0.1 10^3/uL (0.0-0.2); BASO % 1.2 % (0.0-1.0); EOS # 0.2 10^3/uL (0.0-0.5); HEMATOCRIT 23.2 % (42.0-52.0); HEMOGLOBIN 8.2 g/dl (13.5-17.5); LYMPH # 0.7 10^3/uL (1.5-5.0); LYMPH % 15.2 % (24.0-44.0); MEAN CORPUSCULAR HGB CONC 35.3 g/dl (32.0-36.5); MEAN CORPUSCULAR VOLUME 101.8 fl (80.0-96.0); MONO # 0.8 10^3/uL (0.0-0.8); MONO % 18.2 % (2.0-8.0); NEUTROPHILS # 2.6 10^3/uL (1.5-8.5); NEUTROPHILS % 60.7 % (36.0-66.0); RED BLOOD COUNT 2.28 10^6/uL (4.30-6.10); WHITE BLOOD COUNT 4.3 10^3/uL (4.0-10.0)
[2024-03-14 05:28] LABS: PLATELET COUNT, AUTOMATED 80 10^3/uL (150-450)
[2024-03-14 05:33] VITALS: BP 115/61; TEMP 97.7; O2SAT 96
[2024-03-14 05:44] LABS: ALBUMIN 2.6 G/DL (3.2-5.2); ALKALINE PHOSPHATASE 132 U/L (40-129); ALT/SGPT 24 U/L (7.0-40); AST/SGOT 34 U/L (<34); BILIRUBIN,TOTAL 2.5 MG/DL (0.3-1.2); BLOOD UREA NITROGEN 20 MG/DL (9-23); CALCIUM LEVEL 8.3 MG/DL (8.3-10.6); CARBON DIOXIDE LEVEL 27 MMOL/L (20-31); CHLORIDE LEVEL 103 MMOL/L (98-107); CREATININE FOR GFR 1.18 MG/DL (0.70-1.30); GLOMERULAR FILTRATION RATE > 60.0 (>49); GLUCOSE, FASTING 113 MG/DL (74-106); SODIUM LEVEL 138 MMOL/L (136-145); TOTAL PROTEIN 5.6 G/DL (5.7-8.2)
[2024-03-14] MEDS: LACTULOSE 20GM/30ML SYRUP UDC PO SCH (08:18)
[2024-03-14 08:27] LABS: INR 2.32; PARTIAL THROMBOPLASTIN TIME 37.4 SECONDS (24.8-34.2); PROTHROMBIN TIME 25.6 SECONDS (12.5-14.5)
[2024-03-14 11:51] VITALS: BP 109/61; TEMP 97.7; O2SAT 98
[2024-03-14 20:21] VITALS: BP 131/79; TEMP 97.2; O2SAT 97
[2024-03-15 05:03] VITALS: BP 104/59; TEMP 97; O2SAT 98
[2024-03-15 06:55] LABS: ALBUMIN 2.7 G/DL (3.2-5.2); ALKALINE PHOSPHATASE 148 U/L (40-129); ALT/SGPT 27 U/L (7.0-40); AST/SGOT 43 U/L (<34); BILIRUBIN,TOTAL 2.4 MG/DL (0.3-1.2); BLOOD UREA NITROGEN 23 MG/DL (9-23); CALCIUM LEVEL 8.2 MG/DL (8.3-10.6); CARBON DIOXIDE LEVEL 25 MMOL/L (20-31); CHLORIDE LEVEL 102 MMOL/L (98-107); CREATININE FOR GFR 1.11 MG/DL (0.70-1.30); GLOMERULAR FILTRATION RATE > 60.0 (>49); GLUCOSE, FASTING 112 MG/DL (74-106); POTASSIUM SERUM 4.1 MMOL/L (3.5-5.1); SODIUM LEVEL 134 MMOL/L (136-145); TOTAL PROTEIN 5.8 G/DL (5.7-8.2)
[2024-03-15 06:58] LABS: BASO # 0.1 10^3/uL (0.0-0.2); BASO % 1.3 % (0.0-1.0); EOS # 0.2 10^3/uL (0.0-0.5); EOS % 3.7 % (0.0-3.0); HEMATOCRIT 24.4 % (42.0-52.0); HEMOGLOBIN 8.8 g/dl (13.5-17.5); LYMPH # 0.7 10^3/uL (1.5-5.0); LYMPH % 14.7 % (24.0-44.0); MEAN CORPUSCULAR HGB CONC 36.1 g/dl (32.0-36.5); MEAN CORPUSCULAR VOLUME 102.5 fl (80.0-96.0); MONO # 0.9 10^3/uL (0.0-0.8); MONO % 19.7 % (2.0-8.0); NEUTROPHILS # 2.7 10^3/uL (1.5-8.5); NEUTROPHILS % 60.2 % (36.0-66.0); RED BLOOD COUNT 2.38 10^6/uL (4.30-6.10); WHITE BLOOD COUNT 4.6 10^3/uL (4.0-10.0)
[2024-03-15 06:59] LABS: PLATELET COUNT, AUTOMATED 81 10^3/uL (150-450)
[2024-03-15] MEDS ORDERED: CIPR500T39 PO (10:57)
[2024-03-15] MEDS ORDERED: SENN-165 PO (10:57)
[2024-03-15 12:00] VITALS: TEMP 97; O2SAT 99
[2024-03-15 12:07] VITALS: BP 112/64
[2024-03-15] MEDS: LACTULOSE 20GM/30ML SYRUP UDC PR SCH (13:14)
== END 2024-03-15 14:10 | disposition home or self-care (01) | DRG 432 ==
LOC: M ED 09:56 → M ED INP 03-11 13:45 → M MS5PR 03-12 13:35
PROVIDERS: ADMIT Student in an Organized Health Care Education/Training Program; ATTEND General Practice
PROC: 0W9G3ZZ Drainage of Peritoneal Cavity, Percutaneous Approach (ICD-10-PCS; 2024-03-08)
PROC: 30233J1 Transfusion of Nonautologous Serum Albumin into Peripheral Vein, Percutaneous Approach (ICD-10-PCS; principal; 2024-03-09)
DX: K74.60 Unspecified cirrhosis of liver (principal); K65.2 Spontaneous bacterial peritonitis; K76.6 Portal hypertension; I85.10 Secondary esophageal varices without bleeding; R18.8 Other ascites; N17.9 Acute kidney failure, unspecified; J90 Pleural effusion, not elsewhere classified; E11.9 Type 2 diabetes mellitus without complications; K31.89 Other diseases of stomach and duodenum; G47.33 Obstructive sleep apnea (adult) (pediatric); K21.9 Gastro-esophageal reflux disease without esophagitis; E78.5 Hyperlipidemia, unspecified; I25.10 Atherosclerotic heart disease of native coronary artery without angina pectoris; J44.9 Chronic obstructive pulmonary disease, unspecified; G25.81 Restless legs syndrome; E87.70 Fluid overload, unspecified; K76.82 Hepatic encephalopathy; I10 Essential (primary) hypertension; D69.6 Thrombocytopenia, unspecified; D50.9 Iron deficiency anemia, unspecified; I48.91 Unspecified atrial fibrillation; Z79.01 Long term (current) use of anticoagulants; Z79.899 Other long term (current) drug therapy

== ENCOUNTER → 2024-03-22 | Outpatient (CLI) | payer MEDICARE, OTHER ==
[~2024-03-22] MED LIST changes: +B-1100TA2 PO; +CIPR500T39 PO; +ERGO500029 PO; +FOLI1TAB11 PO; +MULT400T10 PO; +NYST1CRE15 TOP; +PANT40TA29 PO; +SENN-165 PO; +TRAZ-252 PO; +ZINC57OI TP
[2024-03-22 13:35] VITALS: TEMP 98.2
[2024-03-22 15:11] VITALS: BP 92/56; O2SAT 99
== END ==
LOC: M IRPRO 13:03
PROVIDERS: ATTEND Student in an Organized Health Care Education/Training Program
DX: R18.8 Other ascites (principal); K74.60 Unspecified cirrhosis of liver

== ENCOUNTER 2024-04-03 09:10 | Inpatient (IN) | payer MEDICARE, OTHER ==
[~2024-04-03] VITALS: Ht 180.3 cm; Wt 98.0 kg
[2024-04-03 10:03] LABS: BASO % 0.5 % (0.0-1.0); EOS # 0.2 10^3/uL (0.0-0.5); EOS % 3.6 % (0.0-3.0); HEMATOCRIT 26.8 % (42.0-52.0); HEMOGLOBIN 9.8 g/dl (13.5-17.5); LYMPH # 0.6 10^3/uL (1.5-5.0); LYMPH % 10.3 % (24.0-44.0); MEAN CORPUSCULAR HEMOGLOBIN 36.4 pg (27.0-33.0); MEAN CORPUSCULAR HGB CONC 36.6 g/dl (32.0-36.5); MEAN CORPUSCULAR VOLUME 99.6 fl (80.0-96.0); MONO # 0.8 10^3/uL (0.0-0.8); MONO % 12.9 % (2.0-8.0); NEUTROPHILS # 4.4 10^3/uL (1.5-8.5); NEUTROPHILS % 71.2 % (36.0-66.0); RED BLOOD COUNT 2.69 10^6/uL (4.30-6.10); WHITE BLOOD COUNT 6.1 10^3/uL (4.0-10.0)
[2024-04-03 10:09] LABS: PLATELET COUNT, AUTOMATED 90 10^3/uL (150-450)
[2024-04-03 10:35] LABS: ALBUMIN 2.6 G/DL (3.2-5.2); BILIRUBIN,DIRECT 1.8 MG/DL (<0.4); BILIRUBIN,TOTAL 3.6 MG/DL (0.3-1.2); CALCIUM LEVEL 8.2 MG/DL (8.3-10.6); CREATININE FOR GFR 2.13 MG/DL (0.70-1.30); GLOMERULAR FILTRATION RATE 33.2 (>49); POTASSIUM SERUM 5.1 MMOL/L (3.5-5.1); TOTAL PROTEIN 6.5 G/DL (5.7-8.2)
[2024-04-03 10:36] LABS: THYROID STIMULATING HORMONE 5.374 uIU/ML (0.55-4.78)
[2024-04-03 10:43] LABS: INR 2.05; PROTHROMBIN TIME 23.2 SECONDS (12.5-14.5)
[2024-04-03] MEDS: NS (Normal Saline) 0.9% 1,000 ML IV ONE ×2 (10:58→14:59)
[2024-04-03 13:38] LABS: PROCALCITONIN 0.19 ng/ml
[2024-04-03] MEDS: cefTRIAXone SOD 1 GM in DEXTROSE 5% (D5W) ADV/MINI-BAG 50 ML IV ONE (14:59)
[2024-04-03] MEDS ORDERED: LACT20EL PO (15:36)
[2024-04-03] MEDS ORDERED: CIPR-249 PO (15:36)
[2024-04-03] MEDS ORDERED: FURO40TA2 PO (15:36)
[2024-04-03] MEDS ORDERED: HOME MED LIST COMPLETE! XX SCH (15:40)
[2024-04-03] MEDS: DOXYCYCLINE HYCLATE 100 MG in DEXTROSE 5% (D5W) MINI-BAG PLU 100 ML IV ONE (16:44)
[2024-04-03] MEDS ORDERED: MOM 30ML SUSPENSION UDC PO PRN (17:25)
[2024-04-03] MEDS ORDERED: MAALOX 30 ML SUSP *UDC PO PRN (17:25)
[2024-04-03] MEDS: INSULIN LISPRO (NovoLOG) PER UNIT SC SCH ×2 (17:30→21:00)
[2024-04-03] MEDS ORDERED: GLUCOSE 4 GM CHEW PO PRN (17:35)
[2024-04-03] MEDS ORDERED: GLUCAGON INJ 1MG VIAL SC PRN (17:35)
[2024-04-03] MEDS ORDERED: DEXTROSE 50% 50ML SYRINGE IV PRN (17:35)
[2024-04-03] MEDS ORDERED: CIPROFLOXACIN 500MG TABLET PO SCH (18:00)
[2024-04-03] MEDS ORDERED: PILL CUTTER 1 EACH XX PRN (18:00)
[2024-04-03] MEDS: CIPROFLOXACIN 500MG TABLET PO SCH (18:43)
[2024-04-03] MEDS: PIPERACILLIN/TAZOBACTAM SOD 4.5 GM in DEXTROSE 5% (D5W) ADV/MINI-BAG 50 ML IV SCH (21:49)
[2024-04-03] MEDS: LACTULOSE 20GM/30ML SYRUP UDC PO SCH (21:49)
[2024-04-03] MEDS: traZODone 50 MG TAB PO SCH (21:50)
[2024-04-03] MEDS: DOXYCYCLINE HYCLATE 100MG TABLET PO SCH (21:50)
[2024-04-03] MEDS: APIXABAN 2.5 MG TAB (ELIQUIS) PO SCH (21:50)
[2024-04-03] MEDS: PANTOPRAZOLE 40MG TAB (PROTONIX) PO SCH (21:50)
[2024-04-03] MEDS: rifAXIMin 550 MG TAB (XIFAXAN) PO SCH (21:56)
[2024-04-03 23:50] VITALS: BP 119/62; TEMP 96.5; O2SAT 99
[2024-04-04] VITALS (10 sets, daily range): BP systolic 82–122; BP diastolic 50–73; PULSE 83; TEMP 96.7–98.3; O2SAT 97–100
[2024-04-04 05:49] LABS: ALBUMIN 2.3 G/DL (3.2-5.2); CALCIUM LEVEL 7.9 MG/DL (8.3-10.6); CREATININE FOR GFR 1.75 MG/DL (0.70-1.30); GLOMERULAR FILTRATION RATE 41.6 (>49); MAGNESIUM LEVEL 2.1 MG/DL (1.8-2.4); POTASSIUM SERUM 4.6 MMOL/L (3.5-5.1); TOTAL PROTEIN 5.6 G/DL (5.7-8.2)
[2024-04-04 06:53] LABS: BASO % 0.2 % (0.0-1.0); EOS # 0.1 10^3/uL (0.0-0.5); HEMATOCRIT 23.6 % (42.0-52.0); HEMOGLOBIN 8.6 g/dl (13.5-17.5); LYMPH # 0.5 10^3/uL (1.5-5.0); LYMPH % 12.4 % (24.0-44.0); MEAN CORPUSCULAR HEMOGLOBIN 36.4 pg (27.0-33.0); MEAN CORPUSCULAR HGB CONC 36.4 g/dl (32.0-36.5); MONO # 0.5 10^3/uL (0.0-0.8); MONO % 12.2 % (2.0-8.0); NEUTROPHILS # 2.9 10^3/uL (1.5-8.5); NEUTROPHILS % 71.2 % (36.0-66.0); RED BLOOD COUNT 2.36 10^6/uL (4.30-6.10)
[2024-04-04 07:00] LABS: THYROXINE (T4) 2.6 UG/DL (4.5-10.9)
[2024-04-04 07:01] LABS: PLATELET COUNT, AUTOMATED 70 10^3/uL (150-450)
[2024-04-04] MEDS: TORSEMIDE 10 MG TABLET PO SCH (09:00)
[2024-04-04] MEDS: FOLIC ACID 1MG TAB PO SCH (09:32)
[2024-04-04] MEDS: SPIRONOLACTONE 50 MG TAB PO SCH (09:32)
[2024-04-04] MEDS: THIAMINE 100 MG TAB PO SCH (09:38)
[2024-04-04 16:22] LABS: PH BODY FLUID 7.717 UNITS (NOT ESTABLISHED); SOURCE, BODY FLUID pH ASCITES
[2024-04-04 17:09] LABS: SOURCE, BODY FLUID GLUCOSE ASCITES
[2024-04-04 17:10] LABS: LDH, BODY FLUID 50 U/L (NOT ESTABLISHED); SOURCE, BODY FLUID LDH ASCITES
[2024-04-04 17:12] LABS: SOURCE, BODY FLUID TOT PROTEIN ASCITES; TOTAL PROTEIN, BODY FLUID < 2.0 G/DL (NOT ESTABLISHED)
[2024-04-04] MEDS: MIDODRINE 5 MG TAB PO SCH (20:11)
[2024-04-04 20:32] LABS: BASO % 0.5 % (0.0-1.0); EOS # 0.2 10^3/uL (0.0-0.5); EOS % 5.5 % (0.0-3.0); HEMATOCRIT 22.7 % (42.0-52.0); HEMOGLOBIN 8.4 g/dl (13.5-17.5); LYMPH # 0.3 10^3/uL (1.5-5.0); LYMPH % 8.2 % (24.0-44.0); MEAN CORPUSCULAR HEMOGLOBIN 36.5 pg (27.0-33.0); MEAN CORPUSCULAR VOLUME 98.7 fl (80.0-96.0); MONO # 0.6 10^3/uL (0.0-0.8); MONO % 15.4 % (2.0-8.0); NEUTROPHILS # 2.9 10^3/uL (1.5-8.5); NEUTROPHILS % 69.4 % (36.0-66.0); WHITE BLOOD COUNT 4.2 10^3/uL (4.0-10.0)
[2024-04-04 20:34] LABS: PLATELET COUNT, AUTOMATED 65 10^3/uL (150-450)
[2024-04-05] VITALS (11 sets, daily range): BP systolic 90–110; BP diastolic 45–78; TEMP 97–98.2; O2SAT 95–99
[2024-04-05 06:04] LABS: ALBUMIN 2.2 G/DL (3.2-5.2); BILIRUBIN,TOTAL 2.2 MG/DL (0.3-1.2); CALCIUM LEVEL 7.9 MG/DL (8.3-10.6); CREATININE FOR GFR 1.61 MG/DL (0.70-1.30); GLOMERULAR FILTRATION RATE 45.8 (>49); POTASSIUM SERUM 4.6 MMOL/L (3.5-5.1)
[2024-04-05 08:37] LABS: BASO % 0.8 % (0.0-1.0); EOS # 0.2 10^3/uL (0.0-0.5); HEMATOCRIT 21.9 % (42.0-52.0); HEMOGLOBIN 7.9 g/dl (13.5-17.5); LYMPH # 0.5 10^3/uL (1.5-5.0); LYMPH % 13.7 % (24.0-44.0); MEAN CORPUSCULAR HEMOGLOBIN 35.6 pg (27.0-33.0); MEAN CORPUSCULAR HGB CONC 36.1 g/dl (32.0-36.5); MEAN CORPUSCULAR VOLUME 98.6 fl (80.0-96.0); MONO # 0.6 10^3/uL (0.0-0.8); MONO % 16.1 % (2.0-8.0); NEUTROPHILS # 2.3 10^3/uL (1.5-8.5); NEUTROPHILS % 62.9 % (36.0-66.0); RED BLOOD COUNT 2.22 10^6/uL (4.30-6.10); WHITE BLOOD COUNT 3.7 10^3/uL (4.0-10.0)
[2024-04-05 08:39] LABS: PLATELET COUNT, AUTOMATED 63 10^3/uL (150-450)
[2024-04-05] MEDS: TAMSULOSIN 0.4 MG CAP PO SCH (09:32)
[2024-04-05 13:20] LABS: PROCALCITONIN 0.15 ng/ml
[2024-04-05 15:15] LABS: HEMATOCRIT 24.1 % (42.0-52.0); HEMOGLOBIN 8.7 g/dl (13.5-17.5)
[2024-04-06 05:05] VITALS: BP 116/60; TEMP 97.4; O2SAT 92
[2024-04-06 07:50] LABS: BASO % 0.9 % (0.0-1.0); EOS # 0.2 10^3/uL (0.0-0.5); EOS % 6.1 % (0.0-3.0); HEMATOCRIT 24.4 % (42.0-52.0); HEMOGLOBIN 8.8 g/dl (13.5-17.5); LYMPH # 0.6 10^3/uL (1.5-5.0); MEAN CORPUSCULAR HEMOGLOBIN 35.3 pg (27.0-33.0); MEAN CORPUSCULAR HGB CONC 36.1 g/dl (32.0-36.5); MONO # 0.6 10^3/uL (0.0-0.8); MONO % 16.6 % (2.0-8.0); NEUTROPHILS # 2.1 10^3/uL (1.5-8.5); NEUTROPHILS % 59.5 % (36.0-66.0); RED BLOOD COUNT 2.49 10^6/uL (4.30-6.10); WHITE BLOOD COUNT 3.4 10^3/uL (4.0-10.0)
[2024-04-06 07:58] LABS: PLATELET COUNT, AUTOMATED 74 10^3/uL (150-450)
[2024-04-06 08:09] LABS: BILIRUBIN,TOTAL 2.3 MG/DL (0.3-1.2); CALCIUM LEVEL 7.8 MG/DL (8.3-10.6); CREATININE FOR GFR 1.43 MG/DL (0.70-1.30); GLOMERULAR FILTRATION RATE 52.5 (>49); MAGNESIUM LEVEL 1.8 MG/DL (1.8-2.4); POTASSIUM SERUM 4.4 MMOL/L (3.5-5.1); TOTAL PROTEIN 4.9 G/DL (5.7-8.2)
[2024-04-06 08:43] VITALS: BP 100/60; TEMP 97.5; O2SAT 98
[2024-04-06 12:13] VITALS: BP 91/54; TEMP 98.7; O2SAT 98
[2024-04-06 12:15] VITALS: BP 92/56
[2024-04-06 15:47] VITALS: BP 94/53; TEMP 97.7; O2SAT 98
[2024-04-06 20:28] VITALS: BP 98/58; TEMP 97.7; O2SAT 95
[2024-04-07] VITALS (8 sets, daily range): BP systolic 96–110; BP diastolic 52–72; TEMP 97–98.2; O2SAT 96–100
[2024-04-07 07:59] LABS: ALBUMIN 1.9 G/DL (3.2-5.2); CALCIUM LEVEL 7.7 MG/DL (8.3-10.6); CREATININE FOR GFR 1.44 MG/DL (0.70-1.30); GLOMERULAR FILTRATION RATE 52.1 (>49); MAGNESIUM LEVEL 1.7 MG/DL (1.8-2.4); POTASSIUM SERUM 4.5 MMOL/L (3.5-5.1); TOTAL PROTEIN 5.1 G/DL (5.7-8.2)
[2024-04-07 08:13] LABS: HEMATOCRIT 25.4 % (42.0-52.0); HEMOGLOBIN 9.2 g/dl (13.5-17.5)
[2024-04-07] MEDS: MAG SULF 1GM/100ML (MAG RUN) 1 GM in IV 1 EA IV ONE (10:40)
[2024-04-07 17:07] LABS: MYCOPLASMA PNEUMONIAE IGG 2.26 (<=0.90)
[2024-04-08 04:33] VITALS: BP 102/62; TEMP 97.4; O2SAT 96
[2024-04-08 05:31] LABS: ALBUMIN 1.9 G/DL (3.2-5.2); BILIRUBIN,TOTAL 1.9 MG/DL (0.3-1.2); CALCIUM LEVEL 7.8 MG/DL (8.3-10.6); CREATININE FOR GFR 1.56 MG/DL (0.70-1.30); GLOMERULAR FILTRATION RATE 47.5 (>49); MAGNESIUM LEVEL 1.8 MG/DL (1.8-2.4); POTASSIUM SERUM 4.6 MMOL/L (3.5-5.1); TOTAL PROTEIN 5.2 G/DL (5.7-8.2)
[2024-04-08 07:34] VITALS: BP 105/60; TEMP 97.5; O2SAT 96
[2024-04-08 12:12] VITALS: BP 100/59; TEMP 97.7; O2SAT 97
[2024-04-08 14:52] LABS: APPEARANCE, URINE CLOUDY (CLEAR); BACTERIA, URINE AUTO 1+ (NEGATIVE); BILIRUBIN, URINE AUTO NEGATIVE (NEGATIVE); BLOOD, URINE BLOOD 3+ (NEGATIVE); COLOR, URINE AMBER (YELLOW); GLUCOSE, URINE (UA) AUTO NEGATIVE (NEGATIVE); KETONE, URINE AUTO NEGATIVE (NEGATIVE); LEUKOCYTE ESTERASE, URINE AUTO 3+ (NEGATIVE); MUCUS, URINE SMALL (NEGATIVE); NITRITE, URINE AUTO NEGATIVE (NEGATIVE); PROTEIN, URINE AUTO 1+ mg/dL (NEGATIVE); RBC, URINE AUTO 142 /HPF (0-3); SQUAMOUS EPITHELIAL CELL UR AU 3 /HPF (0-6); UROBILINOGEN, URINE AUTO 0.2 mg/dL (0.0-2.0); WBC, URINE AUTO 156 /HPF (0-3); YEAST LIKE CELL URINE AUTO SMALL
[2024-04-08 16:18] VITALS: BP 101/58; TEMP 97.5; O2SAT 96
[2024-04-08 18:58] LABS: URINE STREP PNEUMONIAE ANTIGEN NOT DETECTED (NOT DETECT)
[2024-04-08 19:35] VITALS: BP 104/51; TEMP 97.8; O2SAT 95
[2024-04-09] VITALS (9 sets, daily range): BP systolic 92–122; BP diastolic 50–68; PULSE 80; TEMP 97–98.2; O2SAT 95–100
[2024-04-09] MEDS: ACETAMINOPHEN 325 MG TAB PO PRN (00:22)
[2024-04-09 05:57] LABS: BASO % 0.6 % (0.0-1.0); EOS # 0.2 10^3/uL (0.0-0.5); EOS % 2.5 % (0.0-3.0); HEMATOCRIT 25.3 % (42.0-52.0); HEMOGLOBIN 9.2 g/dl (13.5-17.5); LYMPH # 0.7 10^3/uL (1.5-5.0); LYMPH % 10.2 % (24.0-44.0); MEAN CORPUSCULAR HEMOGLOBIN 35.1 pg (27.0-33.0); MEAN CORPUSCULAR HGB CONC 36.4 g/dl (32.0-36.5); MEAN CORPUSCULAR VOLUME 96.6 fl (80.0-96.0); MONO # 0.9 10^3/uL (0.0-0.8); MONO % 13.2 % (2.0-8.0); NEUTROPHILS # 4.8 10^3/uL (1.5-8.5); NEUTROPHILS % 72.6 % (36.0-66.0); RED BLOOD COUNT 2.62 10^6/uL (4.30-6.10); WHITE BLOOD COUNT 6.7 10^3/uL (4.0-10.0)
[2024-04-09 05:58] LABS: PLATELET COUNT, AUTOMATED 82 10^3/uL (150-450)
[2024-04-09 06:20] LABS: ALBUMIN 2.1 G/DL (3.2-5.2); BILIRUBIN,TOTAL 2.1 MG/DL (0.3-1.2); CREATININE FOR GFR 1.56 MG/DL (0.70-1.30); GLOMERULAR FILTRATION RATE 47.5 (>49); MAGNESIUM LEVEL 1.9 MG/DL (1.8-2.4); POTASSIUM SERUM 4.7 MMOL/L (3.5-5.1); TOTAL PROTEIN 5.6 G/DL (5.7-8.2)
[2024-04-09 12:25] LABS: INR 2.13; PROTHROMBIN TIME 23.9 SECONDS (12.5-14.5)
[2024-04-09 13:57] LABS: APPEARANCE, BODY FLUID HAZY (CLEAR); ASCITES FL COLOR YELLOW (COLORLESS); SOURCE, BODY FLUID ASCITES
[2024-04-09 14:22] LABS: SOURCE, BODY FLUID ALBUMIN ASCITES
[2024-04-09 14:27] LABS: SOURCE, BODY FLUID GLUCOSE ASCITES; SOURCE, BODY FLUID TOT PROTEIN ASCITES; TOTAL PROTEIN, BODY FLUID < 2.0 G/DL (NOT ESTABLISHED)
[2024-04-09] MEDS: CIPROFLOXACIN 500MG TABLET PO SCH (17:46)
[2024-04-10] VITALS (8 sets, daily range): BP systolic 80–103; BP diastolic 45–70; TEMP 97.2–98; O2SAT 95–99
[2024-04-10 07:06] LABS: ALBUMIN 2.1 G/DL (3.2-5.2); CALCIUM LEVEL 7.8 MG/DL (8.3-10.6); CREATININE FOR GFR 1.53 MG/DL (0.70-1.30); GLOMERULAR FILTRATION RATE 48.6 (>49); MAGNESIUM LEVEL 1.9 MG/DL (1.8-2.4); POTASSIUM SERUM 4.4 MMOL/L (3.5-5.1)
[2024-04-10 14:48] LABS: INR 2.08; PROTHROMBIN TIME 23.5 SECONDS (12.5-14.5)
[2024-04-10 14:49] LABS: INR 2.12; PARTIAL THROMBOPLASTIN TIME 36.6 SECONDS (24.8-34.2); PROTHROMBIN TIME 23.9 SECONDS (12.5-14.5)
== END 2024-04-11 00:35 | disposition short-term general hospital (02) | DRG 432 ==
LOC: M ED 09:10 → M ED INP 17:21 → M PCU 04-04 00:35
PROVIDERS: ADMIT Student in an Organized Health Care Education/Training Program; ATTEND General Practice
PROC: 30233J1 Transfusion of Nonautologous Serum Albumin into Peripheral Vein, Percutaneous Approach (ICD-10-PCS; 2024-04-03)
PROC: 0W9G3ZX Drainage of Peritoneal Cavity, Percutaneous Approach, Diagnostic (ICD-10-PCS; principal; 2024-04-04 15:09)
PROC: 0W9G3ZZ Drainage of Peritoneal Cavity, Percutaneous Approach (ICD-10-PCS; 2024-04-09)
DX: K74.60 Unspecified cirrhosis of liver (principal); J18.9 Pneumonia, unspecified organism; G93.41 Metabolic encephalopathy; K76.7 Hepatorenal syndrome; N17.9 Acute kidney failure, unspecified; K76.6 Portal hypertension; E87.1 Hypo-osmolality and hyponatremia; R18.8 Other ascites; J44.0 Chronic obstructive pulmonary disease with (acute) lower respiratory infection; D68.4 Acquired coagulation factor deficiency; I85.10 Secondary esophageal varices without bleeding; K76.82 Hepatic encephalopathy; N18.30 Chronic kidney disease, stage 3 unspecified; I25.10 Atherosclerotic heart disease of native coronary artery without angina pectoris; G47.33 Obstructive sleep apnea (adult) (pediatric); K71.3 Toxic liver disease with chronic persistent hepatitis; K21.9 Gastro-esophageal reflux disease without esophagitis; K75.81 Nonalcoholic steatohepatitis (NASH); D69.59 Other secondary thrombocytopenia; E87.70 Fluid overload, unspecified; R74.01 Elevation of levels of liver transaminase levels; E80.6 Other disorders of bilirubin metabolism; R33.9 Retention of urine, unspecified; D63.8 Anemia in other chronic diseases classified elsewhere; E11.22 Type 2 diabetes mellitus with diabetic chronic kidney disease; R32 Unspecified urinary incontinence; D53.9 Nutritional anemia, unspecified; Z79.01 Long term (current) use of anticoagulants; Z79.899 Other long term (current) drug therapy; Z87.442 Personal history of urinary calculi

== ENCOUNTER → 2024-04-25 | Outpatient (CLI) | payer MEDICARE, OTHER ==
[~2024-04-25] MED LIST changes: +ACET-907 PO; +ATOR40TA75 PO; +CIPR-249 PO; +LACT10SO94 PO; +MIDO10TA3 PO; +TAMS1CAP17 PO
[2024-04-25 14:06] VITALS: TEMP 97.5
[2024-04-25 14:41] VITALS: BP 99/51; O2SAT 100
== END ==
LOC: M IRPRO 14:01
PROVIDERS: ATTEND Registered Nurse
DX: R18.8 Other ascites (principal); K74.60 Unspecified cirrhosis of liver